=== PATIENT | male | born 1955 | race Two or more races ===

== ENCOUNTER 2023-03-05 09:38 | Emergency (ER) | payer OTHER ==
[~2023-03-05] VITALS: Ht 172.7 cm; Wt 88.5 kg
[2023-03-05] MEDS ORDERED: LOSARTAN-HCTZ1 EAC1 (09:45)
== END 2023-03-05 16:17 | disposition home or self-care (01) ==
LOC: ER 09:38
DX: R10.84 Generalized abdominal pain (principal)